=== PATIENT | male | born 1965 | race Caucasian/White ===

== ENCOUNTER 2018-06-28 12:08 | Day surgery (SDC) | payer BC ==
[~2018-06-28] VITALS: Ht 188 cm; Wt 139.3 kg
[~2018-06-28 12:08] MED LIST: CIALIS20 MG PO; MOTRIN800 MG PO; NEURONTIN300 MG PO; PRINIVIL10 MG PO; PRINIVIL20 MG PO; ZOCOR20 MG PO
[2018-06-28 12:59] VITALS: BP 133/78
[2018-06-28 18:50] VITALS: BP 128/70
[2018-06-28 19:57] VITALS: BP 135/75
[2018-06-28 20:06] VITALS: BP 130/70
== END 2018-06-28 20:08 | disposition home or self-care (01) ==
LOC: SDC 12:08 → EDSTATUS 12:54 → 2SOUTH 12:54 → SDC 12:59
PROC: 0SB20ZZ Excision of Lumbar Vertebral Disc, Open Approach (ICD-10-PCS; principal; 2018-06-28)
PROC: 01NB0ZZ Release Lumbar Nerve, Open Approach (ICD-10-PCS; principal; 2018-06-28)
DX: M48.061 Spinal stenosis, lumbar region without neurogenic claudication (principal); M51.26 Other intervertebral disc displacement, lumbar region; E66.01 Morbid (severe) obesity due to excess calories; Z68.41 Body mass index [BMI] 40.0-44.9, adult; R73.03 Prediabetes; E78.5 Hyperlipidemia, unspecified; I10 Essential (primary) hypertension; Z88.0 Allergy status to penicillin; Z88.5 Allergy status to narcotic agent; Z80.8 Family history of malignant neoplasm of other organs or systems; Z82.49 Family history of ischemic heart disease and other diseases of the circulatory system
CPT/HCPCS: 72020; 76000; J0131; J1170; J1885; J2405; J2930; J3010; J3370; J3475; S0020